=== PATIENT | female | born 1935 | race Caucasian/White ===

== ENCOUNTER 2019-05-27 14:18 | Emergency (ER) | payer MEDICARE, BC ==
[2019-05-27 15:08] LABS: Urine Appearance Clear; Urine Bacteria Absent (Absent); Urine Bilirubin Negative (Negative); Urine Blood Negative (Negative); Urine Color Yellow; Urine Glucose Negative (Negative); Urine Ketones Trace (Negative); Urine Nitrite Negative (Negative); Urine Protein Negative (Negative); Urine Red Blood Cell 1+(3-5/hpf) (Absent); Urine Specific Gravity 1.025 (1.010-1.030); Urine Squamous Epithelial Cell Present (Absent); Urine Urobilinogen Negative (Negative); Urine White Blood Cell Trace(0-5/hpf) (Absent)
[2019-05-27 15:40] LABS: ABS Eosinophils 0.2 10^3/ul (0-0.6); ABS Lymphocytes 1.9 10^3/ul (1.0-4.8); ABS Monocytes 0.7 10^3/ul (0-0.8); ABS Neutrophils 4.2 10^3/ul (1.5-7.7); Eosinophil % 2.3 %; Hematocrit 41 % (35-47); Hemoglobin 14.3 g/dL (12.0-16.0); Lymphocyte % 27.1 %; Mean Corpuscular HGB Conc 35 g/dL (31-36); Mean Corpuscular Hemoglobin 30 pg (27-31); Mean Corpuscular Volume 87 fL (80-97); Mean Platelet Volume 9.2 fL (7.4-10.4); Platelet Count 224 10^3/uL (150-450); Red Blood Count 4.71 10^6 /uL (3.70-4.87); Red Cell Distribution Width 14 % (10-15); White Blood Count 7.1 10^3/uL (3.5-10.8)
[2019-05-27 16:10] LABS: ALT 10 U/L (7-52); AST 18 U/L (13-39); Albumin 4.6 g/dL (3.2-5.2); Alkaline Phosphatase 74 U/L (34-104); Anion Gap 7 mmol/L (2-11); BUN/Creatinine Ratio 21.5 (8-20); Blood Urea Nitrogen 23 mg/dL (6-24); CO2 Carbon Dioxide 27 mmol/L (22-32); Calcium 9.4 mg/dL (8.6-10.3); Chloride 108 mmol/L (101-111); EGFR African American 59.4 (>60); EGFR Non-African American 49.1 (>60); Globulin 2.3 g/dL (2-4); Glucose 123 mg/dL (70-100); Potassium 3.5 mmol/L (3.5-5.0); Sodium 142 mmol/L (135-145); Total Protein 6.9 g/dL (6.4-8.9)
--- NOTE | 2019-05-27 17:13 | ED ---
Neurological HPI - HPI Summary HPI Summary: Pt is an 83 y/o F presenting to the ED brought in by EMS for neurological sx. She states that over the past week, the pt has had trouble with memory loss and thinking of the correct words. She reports left eye weakness, and one episode of emesis last night. She denies muscle weakness, myalgia, or SOB. Per the pts daughter, when she is telling a story, she has a hard time remembering details, and her demeanor is much quieter than usual. Her speech is not slurred, it is just slow to be completed. Medications reviewed. Allergies noted. NKDA. - History of Current Complaint Chief Complaint: EDAltMentalStatus Stated Complaint: SLURRED SPEECH PER PTQ Time Seen by Provider: 05/27/19 16:09 Hx Obtained From: Patient, Family/Painting Technician Onset/Duration: Gradual Onset, Started weeks ago, Still Present Timing: Constant Onset Severity: Moderate Current Severity: Moderate Pain Intensity: 0 Pain Scale Used: 0-10 Numeric Character: Impaired Speech, Confusion, Visual Changes Associated Signs and Symptoms: Positive: Visual Changes, Memory Loss, Confusion , Impaired Speech, Nausea/Vomiting. Negative: Weakness, Pain, Shortness of Breath - Allergy/Home Medications Allergies/Adverse Reactions: Allergies Allergy/AdvReac Type Severity Reaction Status Date / Time No Known Allergies Allergy Verified 05/27/19 14:30 Home Medications: Home Medications L.acidoph,Paracasei, B.lactis [Probiotic] 1 each PO DAILY 05/27/19 [History Confirmed 05/27/19] Levothyroxine TAB* [Synthroid TAB*] 75 mcg PO DAILY 05/27/19 [History Confirmed 05/27/19] Multivitamins/Minerals TAB* [Theragran/minerals TAB*] 1 tab PO DAILY 05/27/19 [ History Confirmed 05/27/19] Omeprazole CAP (NF) [Prilosec CAP* 20 MG] 20 mg PO BID 05/27/19 [History Confirmed 05/27/19] PMH/Surg Hx/FS Hx/Imm Hx Previously Healthy: Yes Endocrine/Hematology History: Denies: Hx Diabetes Cardiovascular History: Denies: Hx Hypertension - Surgical History Surgery Procedure, Year, and Place: skin melanoma removed Infectious Disease History: No Infectious Disease History: Denies: Traveled Outside the [place] in Last 30 Days - Family History Known Family History: Negative: Hypertension - Social History Alcohol Use: None Hx Substance Use: No Substance Use Type: Reports: None Hx Tobacco Use: No Smoking Status (MU): Never Smoked Tobacco Review of Systems Positive: Other - left eye weakness Negative: Shortness Of Breath Positive: Vomiting Negative: Myalgia Neurological: Other - memory loss, impaired speech Negative: Weakness, Slurred Speech All Other Systems Reviewed And Are Negative: Yes Physical Exam - Summary Physical Exam Summary: Constitutional: Well-developed, Well-nourished, Alert. (-) Distressed Skin: Warm, Dry HENT: Normocephalic; Atraumatic Eyes: Conjunctiva normal Neck: Musculoskeletal ROM normal neck. (-) JVD, (-) Stridor, (-) Tracheal deviation Cardio: Rhythm regular, rate normal, Heart sounds normal; Intact distal pulses; The pedal pulses are 2+ and symmetric. Radial pulses are 2+ and symmetric. (-) Murmur Pulmonary/Chest wall: Effort normal. (-) Respiratory distress, (-) Wheezes, (-) Rales Abd: Soft, (-) tenderness, (-) Distension, (-) Guarding, (-) Rebound Musculoskeletal: (-) Edema Lymph: (-) Cervical adenopathy Neuro: Alert, Oriented x3. See NIH stroke scale for more details. NIH 0. Psych: Mood and affect Normal Triage Information Reviewed: Yes Vital Signs On Initial Exam: Initial Vitals Temp Pulse Resp BP Pulse Ox 98.7 F 78 18 147/113 98 05/27/19 14:20 05/27/19 14:20 05/27/19 14:20 05/27/19 14:20 05/27/19 14:20 Vital Signs Reviewed: Yes Diagnostics - Vital Signs Vital Signs Temp Pulse Resp BP Pulse Ox 05/27/19 14:20 98.7 F 78 18 147/113 98 - Laboratory Lab Results: Lab Results 05/27/19 05/27/19 05/27/19 Range/Units 14:45 15:32 15:32 WBC 7.1 (3.5-10.8) 10^3/uL RBC 4.71 (3.70-4.87) 10^6 /uL Hgb 14.3 (12.0-16.0) g/dL Hct 41 (35-47) % MCV 87 (80-97) fL MCH 30 (27-31) pg MCHC 35 (31-36) g/dL RDW 14 (10-15) % Plt Count 224 (150-450) 10^3/uL MPV 9.2 (7.4-10.4) fL Neut % (Auto) 59.7 % Lymph % (Auto) 27.1 % [place] % (Auto) 10.4 % Eos % (Auto) 2.3 % Baso % (Auto) 0.5 % Absolute Neuts (auto) 4.2 (1.5-7.7) 10^3/ul Absolute Lymphs (auto) 1.9 (1.0-4.8) 10^3/ul Absolute Monos (auto) 0.7 (0-0.8) 10^3/ul Absolute Eos (auto) 0.2 (0-0.6) 10^3/ul Absolute Basos (auto) 0.0 (0-0.2) 10^3/ul Absolute Nucleated RBC 0.0 10^3/ul Nucleated RBC % 0.0 Sodium 142 (135-145) mmol/L Potassium 3.5 (3.5-5.0) mmol/L Chloride 108 (101-111) mmol/L Carbon Dioxide 27 (22-32) mmol/L Anion Gap 7 (2-11) mmol/L BUN 23 (6-24) mg/dL Creatinine 1.07 H (0.51-0.95) mg/dL Est GFR ( Amer) 59.4 (>60) Est GFR (Non-Af Amer) 49.1 (>60) BUN/Creatinine Ratio 21.5 H (8-20) Glucose 123 H (70-100) mg/dL Lactic Acid (0.5-2.0) mmol/L Calcium 9.4 (8.6-10.3) mg/dL Total Bilirubin 0.50 (0.2-1.0) mg/dL AST 18 (13-39) U/L ALT 10 (7-52) U/L Alkaline Phosphatase 74 (34-104) U/L Troponin I 0.00 (<0.04) ng/mL Total Protein 6.9 (6.4-8.9) g/dL Albumin 4.6 (3.2-5.2) g/dL Globulin 2.3 (2-4) g/dL Albumin/Globulin Ratio 2.0 (1-3) TSH Pending Urine Color Yellow Urine Appearance Clear Urine pH 5.0 (5-9) Ur Specific [place] 1.025 (1.010-1.030) Urine Protein Negative (Negative) Urine Ketones Trace A (Negative) Urine Blood Negative (Negative) Urine Nitrate Negative (Negative) Urine Bilirubin Negative (Negative) Urine Urobilinogen Negative (Negative) Ur Leukocyte Esterase 1+ A (Negative) Urine WBC (Auto) Trace(0-5/hpf) (Absent) Urine RBC (Auto) 1+(3-5/hpf) A (Absent) Ur Squamous Epith Cells Present A (Absent) Urine Bacteria Absent (Absent) Hyaline Casts Present A (Absent) Urine Glucose Negative (Negative) 05/27/19 Range/Units 15:32 WBC (3.5-10.8) 10^3/uL RBC (3.70-4.87) 10^6 /uL Hgb (12.0-16.0) g/dL Hct (35-47) % MCV (80-97) fL MCH (27-31) pg MCHC (31-36) g/dL RDW (10-15) % Plt Count (150-450) 10^3/uL MPV (7.4-10.4) fL Neut % (Auto) % Lymph % (Auto) % [place] % (Auto) % Eos % (Auto) % Baso % (Auto) % Absolute Neuts (auto) (1.5-7.7) 10^3/ul Absolute Lymphs (auto) (1.0-4.8) 10^3/ul Absolute Monos (auto) (0-0.8) 10^3/ul Absolute Eos (auto) (0-0.6) 10^3/ul Absolute Basos (auto) (0-0.2) 10^3/ul Absolute Nucleated RBC 10^3/ul Nucleated RBC % Sodium (135-145) mmol/L Potassium (3.5-5.0) mmol/L Chloride (101-111) mmol/L Carbon Dioxide (22-32) mmol/L Anion Gap (2-11) mmol/L BUN (6-24) mg/dL Creatinine (0.51-0.95) mg/dL Est GFR ( Amer) (>60) Est GFR (Non-Af Amer) (>60) BUN/Creatinine Ratio (8-20) Glucose (70-100) mg/dL Lactic Acid 1.4 (0.5-2.0) mmol/L Calcium (8.6-10.3) mg/dL Total Bilirubin (0.2-1.0) mg/dL AST (13-39) U/L ALT (7-52) U/L Alkaline Phosphatase (34-104) U/L Troponin I (<0.04) ng/mL Total Protein (6.4-8.9) g/dL Albumin (3.2-5.2) g/dL Globulin (2-4) g/dL Albumin/Globulin Ratio (1-3) TSH Urine Color Urine Appearance Urine pH (5-9) Ur Specific [place] (1.010-1.030) Urine Protein (Negative) Urine Ketones (Negative) Urine Blood (Negative) Urine Nitrate (Negative) Urine Bilirubin (Negative) Urine Urobilinogen (Negative) Ur Leukocyte Esterase (Negative) Urine WBC (Auto) (Absent) Urine RBC (Auto) (Absent) Ur Squamous Epith Cells (Absent) Urine Bacteria (Absent) Hyaline Casts (Absent) Urine Glucose (Negative) Result Diagrams: 05/27/19 15:32 05/27/19 15:32 Lab Statement: Any lab studies that have been ordered have been reviewed, and results considered in the medical decision making process. - EKG 1616 Cardiac Rate: NL - 75bpm EKG Rhythm: 1st Degree HB ST Segment: Normal Ectopy: None Summary of EKG Findings: EKG at 1616 shows NSR at 75bpm with 1st deg HB and T wave inversion in aVL. No STEMI. Course/Dx - Course Course Of Treatment: Patient is here with vague symptoms of confusion for the past 10 days. Patient has a normal neurologic exam here with an NIH stroke scale of 0. Patient had blood work performed which was all grossly unremarkable. Patient was overall well-appearing and given neurology follow-up further evaluation. - Diagnoses Provider Diagnoses: Confusion Discharge ED - Sign-Out/Discharge Documenting (check all that apply): Patient Departure Patient Received Moderate/Deep Sedation with Procedure: No - Discharge Plan Condition: Stable Disposition: HOME Patient Education Materials: Altered Mental Status (ED) Referrals: Kristi Santos NP [Primary Care Provider] - Shree Bright MD [Medical Doctor] - Additional Instructions: Please follow up with Dr. Gonzalez within the next 1-3 days. Return to the emergency department with any new or worsening symptoms. - Billing Disposition and Condition Condition: STABLE Disposition: Home - Attestation Statements Document Initiated by Scribe: Yes Documenting Scribe: Nathalie Mattson Provider For Whom Scribe is Documenting (Include Credential): Navneet Ireland MD. Scribe Attestation: Nathalie Walker, scribed for Navneet Ireland MD. on 05/27/19 at 1853. Scribe Documentation Reviewed: Yes Provider Attestation: The documentation as recorded by the Nathalie wilkes accurately reflects the service I personally performed and the decisions made by , Navneet Ireland MD. Status of Scribe Document: Viewed
[2019-05-27 17:22] VITALS: BP 128/76
[2019-05-27 17:23] LABS: TSH (Thyroid Stimulating Horm) 2.17 mcIU/mL (0.34-5.60)
== END 2019-05-27 17:32 | disposition home or self-care (01) ==
LOC: ED 14:18
DX: R41.0 Disorientation, unspecified (principal); Z79.899 Other long term (current) drug therapy
CPT/HCPCS: 36415; 70450; 80053; 81003; 81015; 82140; 83605; 84443; 84484; 85025; 87086; 93005; 99283